=== PATIENT | female | born 1985 | race Caucasian/White ===

== ENCOUNTER 2017-05-06 08:54 | Emergency (ER) | payer OTHER ==
[~2017-05-06] VITALS: Ht 170.2 cm; Wt 77.1 kg
[~2017-05-06 08:54] MED LIST: PRENATABS FA T1 EACH PO
[2017-05-06] MEDS ORDERED: ONDANSETRON ODT8 MG PO (10:17)
[2017-05-06] MEDS ORDERED: NORCO 7.5-3251 EACH PO (10:17)
== END 2017-05-06 10:45 | disposition home or self-care (01) ==
LOC: ED 08:54
PROC: 2W3LX1Z Immobilization of Right Lower Extremity using Splint (ICD-10-PCS; principal; 2017-05-06)
DX: S82.001A Unspecified fracture of right patella, initial encounter for closed fracture (principal); Z88.0 Allergy status to penicillin; W00.0XXA Fall on same level due to ice and snow, initial encounter
CPT/HCPCS: 29505; 73560; 99283

== ENCOUNTER 2017-05-11 10:15 | Day surgery (SDC) | payer OTHER ==
[~2017-05-11] VITALS: Ht 170.2 cm; Wt 77.1 kg
[~2017-05-11 10:15] MED LIST changes: +NORCO 7.5-3251 EACH PO; +ONDANSETRON ODT8 MG PO
--- NOTE | 2017-05-11 10:20 | NUR ---
IN TO CHECK IN PT, RN AT BEDSIDE STARTING IV. DR. BASILIO IN ROOM TALKING WITH PT. PT STATES THAT HER R KNEE HAS BEEN SWOLLEN, RED AND WARM TO TOCH FOR 2 DAYS. PT STATES SHE HAS ALSO HAD A LOW GRADE FEVER OF 99.6-100 DEGREES OVER THE PAST DAY. DR. BASILIO AWARE OF CONDITION OF KNEE.
--- NOTE | 2017-05-11 11:28 | NUR ---
IN TO CHECK ON PT, PT WATCHING TV. MORPHINE GIVEN FOR 6/10 PAIN. ICE APPLIED TO R KNEE. PT ADVISED TO CALL IF SHE BECOMES NAUSEATED, THIS HAS BEEN A PROBLEM IN THE PAST. NO FURTHER NEEDS AT THIS TIME, CALL LIGHT IN PLACE.
[2017-05-11] MEDS ORDERED: HYDROCODON-ACE1 EA11 PO (14:20)
--- NOTE | 2017-05-11 14:33 | NUR ---
05/11/17 1433 Tien Scott PT ARRIVED TO PACU, RR EVEN AND UNLABORED. PT ON O2 VIA MASK AT 10 L, O2 100%. DR BASILIO OVER TO SPEAK WITH PT. PT DENIES PAIN IN KNEE. C/O OF LBP. PT SAT UP TO HELP WITH PAIN.
--- NOTE | 2017-05-11 15:20 | NUR ---
LE 1450: PT ARRIVED FROM PACU WITH RN. PT AWAKE, VITALS OBTAINED. WATER GIVEN. PT C/O 7/10 R LATERAL KNEE PAIN. PT OFFERED IV PAIN MEDICATIONS, PT CONCERNED ABOUT NAUSEA. ZOFRAN AND MORPHINE GIVEN. PT AWAKE, RESTING WATCHING TV. NO FURTHER NEEDS AT THIS TIME, CALL LIGHT IN REACH.
--- NOTE | 2017-05-11 16:05 | NUR ---
IN TO CHECK ON PT, VITALS OBTAINED. PT AWAKE TALKING WITH BOYFRIEND AND FRIEND. PT LAUGHING, NO SIGNS OF DISTRESS. PT CONTINUES TO RATE PAIN 7/10 ON THE LATERAL ASPECT OF R KNEE. MORPHINE OFFERED, PT DECLINED, STATES "IT'S OKAY." PUDDING GIVEN. WILL CONTINUE TO MONITOR PT.
--- NOTE | 2017-05-11 16:21 | NUR ---
IN TO CHECK ON PT, PT AWAKE ON CELL PHONE. PT TOLERATED PUDDING WELL. PO PAIN MEDICATION GIVEN. PT STATES SHE IS NERVOUS ABOUT N/V. DISCUSSED USE OF PHENERGAN IF NEEDED, PT AGREES TO PLAN. PT CONTINUES TO RATE PAIN 7/10 LATERAL R KNEE PAIN. [employer]ANO [employer]ERS GIVEN PER REQUESTED. NO FURTHER NEEDS AT THIS TIME, CALL LIGHT IN REACH.
--- NOTE | 2017-05-11 17:05 | NUR ---
LE 1640: IN TO CHECK ON PT, PT STATES SHE HAS TO USE THE BATHROOM. PT ASSISTED UP TO BATHROOM WITH STANDBY ASSIST, TOLERATED WELL. PT BACK TO BED WITH HELP OF RN AND BOYFRIEND. PT ASKING WHEN SHE IS ABLE TO GO HOME, INFORMED THAT SHE HAS MEET CRITERIA FOR DC. PT AGREES, IV DC'D. PT DRESSED WITH THE ASSIST OF BOYFRIEND. TOLERATED WELL. TAKEN OUT VIA WC, PT STATES "I FEEL GREAT." ALL QUESTIONS ASKED, NO FURTHER CONCERNS.
--- NOTE | 2017-05-25 08:37 | OR ---
[facility] [address], [place] [address] Signed DATE OF OPERATION: 05/11/2017 SURGEON: Yahir Harrison MD PREOPERATIVE DIAGNOSIS: Right patella fracture-displaced. POSTOPERATIVE DIAGNOSIS: Right patella fracture-displaced. PROCEDURE PERFORMED: Open reduction and internal fixation of the right patella. ORTHODONTIC ASSISTANT: Agueda Pitts PA-C. ANESTHESIA: General with femoral nerve block. TOURNIQUET TIME: 64 minutes. IMPLANTS: Two 1.6 mm K-wires and 1.6 wire. BRIEF HISTORY: Adilene is a 31-year-old female with a history of an ACL reconstruction about 3 months ago. She slipped on the ice last week fracturing her patella. Risks, benefits, and alternatives of operative treatment were discussed with her. Once consent was obtained, she was taken to operating room. DESCRIPTION OF PROCEDURE: After adequate anesthesia, she was placed on operating room table. All downside pressure points well padded. The right leg was placed in well-padded proximal thigh tourniquet, placed a hip bump. The leg was then prepped and draped in a standard sterile fashion and exsanguinated using Esmarch bandage. Tourniquet inflated to 250 mmHg. Previous incision anteriorly was then enlarged distally about 2 inches. It was taken through skin and subcutaneous tissue. Immediately we encountered the fracture and hematoma. This was all cleared out. The fracture was an oblique transverse fracture with minimal comminution. The fracture was then held reduced using a tenaculum and Electronically Signed By: YAHIR HARRISON MD 05/25/17 0837 PATIENT NAME: ADILENE BOJORQUEZ OPERATIVE REPORT DATE OF : 85 REPORT #: [id number] PHYSICIAN: YAHIR HARRISON MD PCP: MIKE ROUSSEAU REPORT IS CONFIDENTIAL AND NOT TO BE RELEASED WITHOUT AUTHORIZATION [facility] [address], [place] [address] Signed checked using image intensifier. Two K-wires were then passed across the patella from inferior to superior. This was done again under direct image intensifier for guidance. The standard AO figure-of-8 tension band construct was then placed through the patellar tendon and through the quad tendon deep to the K-wires. Two wires were placed and twisted at the medial and lateral margins of the patella until it was quite nicely tightened. The K-wires were then cut and bent and buried. Final radiograph showed good reduction and good placement of the K-wires and wire, and the fracture showed no gaping at 45 degrees of flexion. The wound was copiously irrigated with antibiotic solution. The retinaculum medially and laterally was repaired using #1 Vicryl. The subcutaneous tissue with 0 Stratafix, and skin with nuno. The wound was dressed with Mepilex Ag dressing, ABD, and Abundio wrap. She tolerated the procedure well. All sponge, needle, and instrument counts were correct. Yahir Harrison MD BA/DULCE /[id number] Copies: ~ Electronically Signed By: YAHIR HARRISON MD 05/25/17 0837 PATIENT NAME: ADILENE BOJORQUEZ OPERATIVE REPORT DATE OF : 85 REPORT #: [id number] PHYSICIAN: YAHIR HARRISON MD PCP: MIKE ROUSSEAU REPORT IS CONFIDENTIAL AND NOT TO BE RELEASED WITHOUT AUTHORIZATION
== END 2017-05-11 16:45 | disposition home or self-care (01) ==
LOC: OPS 10:15 → DS 11:25 → OPS 13:45
PROVIDERS: Specialist
PROC: 0QSD04Z Reposition Right Patella with Internal Fixation Device, Open Approach (ICD-10-PCS; principal; 2017-05-11 13:45)
DX: S82.041A Displaced comminuted fracture of right patella, initial encounter for closed fracture (principal); Z88.0 Allergy status to penicillin; Z79.899 Other long term (current) drug therapy; Z98.890 Other specified postprocedural states; W00.2XXA Other fall from one level to another due to ice and snow, initial encounter; Y93.29 Activity, other involving ice and snow
CPT/HCPCS: 01390; 64447; 73560; 76942; J0690; J1100; J1885; J2250; J2270; J2405; J2704; J2765; J3010

== ENCOUNTER 2020-05-26 18:40 | Emergency (ER) | payer OTHER ==
[~2020-05-26] VITALS: Ht 170.2 cm; Wt 81.6 kg
[~2020-05-26 18:40] MED LIST changes: +HYDROCODON-ACE1 EA11 PO; +SPRINTEC1 EACH PO
== END 2020-05-26 20:08 | disposition home or self-care (01) ==
LOC: ED 18:40
DX: S81.011A Laceration without foreign body, right knee, initial encounter (principal); W01.10XA Fall on same level from slipping, tripping and stumbling with subsequent striking against unspecified object, initial encounter; Z88.0 Allergy status to penicillin
CPT/HCPCS: 12002; 99282-25

== ENCOUNTER 2022-06-20 05:40 | Day surgery (SDC) | payer OTHER ==
[~2022-06-20] VITALS: Ht 167.6 cm; Wt 76.6 kg
[~2022-06-20 05:40] MED LIST changes: +MULTI VITAMIN1 EACH PO; +PROBIOTIC1 EAC6 PO; +VIT C-ROSE HIP500 MG PO; +ZINC50 M2 PO
--- NOTE | 2022-06-20 07:45 | NUR ---
06/20/22 0745 Caprice Gooden 0734- PT ARRIVES TO PACU NONAROUSABLE TO STIMULI WITH AN OPA IN PLACE. RESP EVEN AND UNLABORED. OXYGEN SAT HIGH 90'S TO 100% ON 8L VIA MASK. PT'S LEFT LEG ELEVATED ON A PILLOW AND ICE PACK APPLIED WITH DRESSING IN BETWEEN SKIN AND ICE PACK. PT NEED A JAW LIFT TO MAINTAIN PATENT AIRWAY. 0737- OXYGEN TITRATED DOWN TO 6L VIA MASK. PT'S HEAD ABLE TO BE REPOSITIONED TO MAINTAIN PATENT AIRWAY WITHOUT JAW LIFT. 0744- PT REMAINS NONAROUSABLE TO STIMULI WITH AN OPA IN PLACE. RESP EVEN AND UNLABORED. OXYGEN SAT 100% ON 6L.
[2022-06-20] MEDS ORDERED: DICLOFENAC SODI75 MG PO (07:49)
[2022-06-20] MEDS ORDERED: HYDROCODON-ACE1 EA10 PO (07:49)
--- NOTE | 2022-06-20 08:18 | NUR ---
LE 0805 PATIENT BACK FROM PACU. REPORT RECIEVED FROM SIERRA NOGUEIRA. PATIENT ALERT AND ORIENTED. BREATHING EQUAL AND UNLABORED. OXYGEN SATURATIONS ABOVE 90% ON ROOM AIR. PATIENT IVF INFUSING. SCD'S ON. SURGICAL SITE CLEAN, DRY AND INTACT. ELEVATED EXTERMITIY. ICE TO OPERATED EXTERMITIY. PATIENT DRINKING WATER AND EATING PUDDING. CALL LIGHT WITHIN REACH NO FUTHER NEEDS. NO QUESTIONS AT THIS TIME.
--- NOTE | 2022-06-20 09:23 | NUR ---
LE 0850 IN ROOM TO SEE PATIENT. PATIENT AMBULATED TO THE RESTROOM. PATIENT VOIDED CLEAR AND YELLOW URINE. PATIENT TOLERATED AMBULATION WELL. LE 0915 PATIENT ALERT AND ORIENTED. BREATHING EQUAL AND UNLABORED. OXYGEN SATURATIONS ABOVE 90% ON ROOM AIR. PATIENT PAIN IS A 1/10 AND TOLERABLE. PATIENT DENIES BEING NAUSEATED. PATIENT HAS MET DISCHARGE CRITERIA. PATIENT GIVEN DISCHARGE INSTRUCTIONS AND UNDERSTOOD. NO QUESTIONS AT THIS TIME. IV D/C'D WNL. PATIENT DRESSED SELF. PATIENT WAS WHEELED OUT OF FACILITY TO PRIVATE AUTO.
--- NOTE | 2022-06-23 06:59 | OR ---
[facility] [address], [place] [address] Signed DATE OF OPERATION: 06/20/2022 SURGEON: Yahir Harrison MD PREOPERATIVE DIAGNOSIS: Lateral meniscus tear, left knee. POSTOPERATIVE DIAGNOSIS: Lateral meniscus tear, left knee. PROCEDURE PERFORMED: Left knee arthroscopy with partial lateral meniscectomy. SIPHON OPERATOR: None. ANESTHESIA: General. BLOOD LOSS: Minimal. TOURNIQUET TIME: Zero. BRIEF HISTORY: Adilene is a 36-year-old female, who had prior ACL reconstruction on this side. She developed pain and locking and catching in the knee. Risks and benefits of operative treatment were discussed with her and she elected to proceed. Once consent was obtained, she was taken to the operating room. After adequate anesthesia, she was placed on the operating room table. All downside pressure points were well padded. The left leg was placed in well-padded leg anand. The right was placed in a leg anand in a flexed abducted external rotated position. The leg was then prepped and draped in a standard sterile fashion. The portal sites were injected with 0.25% Marcaine with epinephrine. Standard inferolateral and superolateral portals were made and the scope was introduced into the knee. 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 The inferior pole showed grade 2 softening. The trochlea was relatively Electronically Signed By: YAHIR HARRISON MD 06/23/22 0659 PATIENT NAME: ADILENE BOJORQUEZ OPERATIVE REPORT DATE OF : 85 REPORT #: [id number] PHYSICIAN: YAHIR HARRISON MD PCP: TRISTAN SHELLEY PAC REPORT IS CONFIDENTIAL AND NOT TO BE RELEASED WITHOUT AUTHORIZATION [facility] [address], [place] [address] Signed intact. Medial and lateral gutters were clear, although there were large osteophytes in the lateral gutter. The ACL reconstruction was intact. Exam under anesthesia showed a negative pivot shift and a negative Tea. The medial compartment was intact. The chondral surfaces were smooth and defect free. The meniscus was intact. 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 There was a complex tear from the posterolateral extended to the mid lateral. There were grade 2 changes to the tibial side. DESCRIPTION OF THE OPERATION: A standard inferomedial portal was made after localization using a spinal needle. The straight biter was then used to trim the meniscus tear back to a stable rim. The shaver was then used to evacuate all the debris and smooth further the meniscus out. The scope was then withdrawn. Portals closed with 3-0 nylon and dressed with Adaptic, ABD, and Abundio wrap. She tolerated the procedure well. All sponge, needle, and instrument counts were correct. Yahir Harrison MD BA/MODL /[id number] Copies: ~ Electronically Signed By: YAHIR HARRISON MD 06/23/22 0659 PATIENT NAME: ADILENE BOJORQUEZ OPERATIVE REPORT DATE OF : 85 REPORT #: [id number] PHYSICIAN: YAHIR HARRISON MD PCP: TRISTAN SHELLEY PAC REPORT IS CONFIDENTIAL AND NOT TO BE RELEASED WITHOUT AUTHORIZATION
== END 2022-06-20 09:15 | disposition home or self-care (01) ==
LOC: DS 05:40
PROVIDERS: ATTEND Specialist
PROC: 0SBD4ZZ Excision of Left Knee Joint, Percutaneous Endoscopic Approach (ICD-10-PCS; principal; 2022-06-20 07:30)
DX: S83.272A Complex tear of lateral meniscus, current injury, left knee, initial encounter (principal)
CPT/HCPCS: J0690; J1100; J1885; J2250; J2405; J2704; J3010; J7121

== ENCOUNTER 2025-01-02 09:09 | Emergency (ER) | payer OTHER ==
[~2025-01-02] VITALS: Ht 167.6 cm; Wt 78.0 kg
[~2025-01-02 09:09] MED LIST changes: +DICLOFENAC SODI75 MG PO; +HYDROCODON-ACE1 EA10 PO
[2025-01-02 12:04] LABS: BASOPHILS 0.7 % (0.1-1.2); EOSINOPHILS 0.7 % (0.7-5.8); LYMPHOCYTES 25.2 % (19.3-51.7); MCH 30.4 PG (25.6-32.2); MCHC 33.8 g/dL (32.2-35.5); MCV 90.0 fL (79.4-94.8); MONOCYTES 8.1 % (4.7-12.5); NEUTROPHILS 65.2 % (34.0-71.1); RBC 4.60 M/uL (3.93-5.22)
[2025-01-02 12:19] LABS: ALT (SGPT) 30.0 U/L (14-59); AST (SGOT) 19.0 U/L (15-37); GLOMERULAR FILTRATION RATE,EST 95.0 mL/min (>60); PROTEIN, TOTAL 7.0 g/dL (6.4-8.2); UREA NITROGEN 27.0 mg/dL (7-18)
[2025-01-02] MEDS ORDERED: APIXABAN 5 MG TAB PO ONE (12:30)
[2025-01-02] MEDS ORDERED: HEPARIN SOD,PORK IN 0.45% NACL 500 ML IV SCH (12:45)
[2025-01-02] MEDS ORDERED: HEParin SOD (PORCINE) 5,000 UNIT/ML SYR IV PRN ×3 (12:45)
[2025-01-02] MEDS ORDERED: HEParin SOD (PORCINE) 5,000 UNIT/ML SYR IV ONE (12:45)
[2025-01-02 12:50] LABS: INR 0.94 (0.80-1.30); PROTIME 12.2 Sec (11.2-14.2)
[2025-01-02 15:26] VITALS: BP 146/86
== END 2025-01-02 15:26 | disposition short-term general hospital (02) ==
LOC: ED 09:09
PROVIDERS: Emergency Medicine
DX: I82.621 Acute embolism and thrombosis of deep veins of right upper extremity (principal); Z88.0 Allergy status to penicillin
CPT/HCPCS: 36415; 80053; 84703; 85025; 85610; 85730; 93971; 96374; 99285-25; J1644